=== PATIENT | male | born 1955 | race Caucasian/White ===

== ENCOUNTER 2021-08-08 20:28 | Emergency (ER) | payer MEDICARE, OTHER ==
[2021-08-08] MEDS ORDERED: Acetaminophen/oxyCODONE 325-5 MG Tab PO ONE (20:29)
[2021-08-08] MEDS ORDERED: Ondansetron 4 MG/2 ML SDV IVPUSH ONE (20:56)
[2021-08-08] MEDS ORDERED: HYDROmorphone 2 MG/ML SDV IVPUSH ONE ×2 (20:56→22:15)
[2021-08-08] MEDS ORDERED: Sodium Chloride 0.9% 10 ML Syringe FLUSH PRN (20:56)
[2021-08-08] MEDS ORDERED: NS + KCl 20mEq/L 1,000 ML IV SCH (21:45)
[2021-08-08 21:51] LABS: HEMOGLOBIN A1C 5.2 % (<5.7)
[2021-08-08] MEDS ORDERED: Iopamidol 755 Mg/ML 75 ML Bottle IV ONE (21:51)
[2021-08-08] MEDS ORDERED: Pantoprazole 80 MG in Sodium Chloride 0.9% 100 ML IV ONE (22:48)
[2021-08-08] MEDS ORDERED: Alum Hydroxide/Mag Hydroxide 15 ML, Lidocaine 2% 15 ML PO ONE ×2 (22:53)
== END 2021-08-09 00:05 | disposition home or self-care (01) ==
LOC: FB.ED 20:28
DX: R10.13 Epigastric pain (principal); D64.9 Anemia, unspecified; Z88.0 Allergy status to penicillin
CPT/HCPCS: 36415; 74177; 80053; 82272; 83036; 83690; 83735; 84484; 85027; 86140; 93005; 93010; 96361; 96365; 96375; 96376; 99283; 99284; A9270; C9113; J1170; J2405; J3480; J3490; Q9967